=== PATIENT | female | born 1980 | race African-American/Black ===

== ENCOUNTER 2017-01-19 14:53 | Emergency (ER) | payer OTHER ==
[~2017-01-19] VITALS: Ht 165.1 cm; Wt 129.3 kg
[~2017-01-19 14:53] MED LIST: BACTRIM DS TAB1 EACH PO; NOHOMEMEDICATIONS
[2017-01-19 14:54] VITALS: BP 167/113
[2017-01-19] MEDS ORDERED: METFORMIN HCL500 MG PO (15:02)
[2017-01-19 15:21] LABS: URINE BILIRUBIN NEGATIVE (Negative); URINE BLOOD NEGATIVE (Negative); URINE COLOR YELLOW; URINE GLUCOSE-RANDOM* NEGATIVE (Negative); URINE KETONES NEGATIVE (Negative); URINE NITRITE NEGATIVE (Negative); URINE PROTEIN (DIPSTICK) NEGATIVE (Negative); URINE UROBILINOGEN 0.2 E.U./dl (0.2-1.0)
[2017-01-19] MEDS ORDERED: CYCLOBENZAPRINE5 MG PO (15:23)
[2017-01-19] MEDS ORDERED: MOBIC15 MG PO (15:23)
== END 2017-01-19 15:59 | disposition home or self-care (01) ==
LOC: ER 14:53
PROVIDERS: Physician Assistant
DX: S39.012A Strain of muscle, fascia and tendon of lower back, initial encounter (principal); R03.0 Elevated blood-pressure reading, without diagnosis of hypertension; F17.210 Nicotine dependence, cigarettes, uncomplicated; X58.XXXA Exposure to other specified factors, initial encounter; Y93.89 Activity, other specified; Y92.89 Other specified places as the place of occurrence of the external cause; Y99.9 Unspecified external cause status